=== PATIENT | female | born 1980 | race Caucasian/White ===

== ENCOUNTER 2024-05-15 07:16 | Outpatient (CLI) | payer OTHER ==
[2024-05-15 12:48] LABS: Hemoglobin A1c 5.8 % (4.0-6.0)
== END 2024-05-15 07:17 | disposition home or self-care (01) ==
LOC: BURLAB 07:16
PROVIDERS: ATTEND Family Medicine
DX: E11.8 Type 2 diabetes mellitus with unspecified complications (principal); E78.5 Hyperlipidemia, unspecified
CPT/HCPCS: 36415; 80061; 83036

== ENCOUNTER 2024-11-27 10:09 | Outpatient (CLI) | payer OTHER ==
[2024-11-27 10:31] LABS: #Basophils 0.1 thou/uL (0.0-0.2); #Eosinophils 0.0 thou/uL (0.0-0.7); #Lymphocytes 2.8 thou/uL (1.20-3.40); #Monocytes 0.7 thou/uL (0.11-0.59); #Neutrophils 8.3 thou/uL (1.40-6.50); %Basophils 0.7 % (0.0-1.0); %Eosinophils 0.4 % (0.0-10.0); %Lymphocytes 23.4 % (21.0-51.0); %Monocytes 5.6 % (0.0-10.0); %Neutrophils 70.0 % (42.0-75.0); Hematocrit 43.6 % (36.0-47.0); Hemoglobin 14.3 g/dL (12.0-16.0); Mean Corpuscular Hemoglobin 27.2 pg (27.0-31.0); Mean Corpuscular Volume 82.9 fl (78.0-98.0); Platelet Count 297 10x3/uL (130-400); Red Blood Cell (RBC) Count 5.25 mill/uL (4.20-5.40); White Blood Cell (WBC) Count 11.8 10x3/uL (4.8-10.8)
[2024-11-27 10:45] LABS: ALT (SGPT) 21 U/L (Less than 34); AST (SGOT) 19 U/L (11-34); Albumin 4.1 g/dL (3.1-4.5); Alkaline Phosphatase 80 U/L (40-110); Anion Gap 14 mmol/L (10-20); BUN (Urea Nitrogen) 13 mg/dL (7.0-18.7); Bilirubin, Total 0.4 mg/dL (0.3-1.2); Calc. Creatinine Clearance 0 mL/min (70-130); Calcium 9.0 mg/dL (7.8-10.44); Carbon Dioxide 27 mmol/L (22-29); Cardiac Risk 4.8 (Less than 4.5); Chloride 104 mmol/L (98-107); Cholesterol 221 mg/dl (< 200 Desired); Globulin 3.6 g/dL (2.4-3.5); Glucose 121 mg/dL (70-105); HDL Cholesterol 46 mg/dL (>60 Neg Risk); LDL Cholesterol, Calculated 127 mg/dL; Potassium 3.8 mmol/L (3.5-5.1); Sodium 141 mmol/L (136-145); Triglycerides 242 mg/dL (Less than 150)
== END 2024-11-27 10:10 | disposition home or self-care (01) ==
LOC: BURLAB 10:09
PROVIDERS: ATTEND Family Medicine
DX: E78.5 Hyperlipidemia, unspecified (principal); E11.8 Type 2 diabetes mellitus with unspecified complications
CPT/HCPCS: 36415; 80053; 80061; 82043; 83036; 84443; 85025